=== PATIENT | female | born 1955 | race Caucasian/White ===

== ENCOUNTER 2017-10-22 03:22 | Emergency (ER) | payer OTHER ==
[~2017-10-22] VITALS: Ht 157.5 cm; Wt 60.0 kg
[2017-10-22 03:25] VITALS: PULSE 101; RESP 22; TEMP 98.7; O2SAT 99
[2017-10-22] MEDS ORDERED: ALBU6.7H INH (03:30)
[2017-10-22] MEDS ORDERED: AUGM875T3 PO (03:30)
--- NOTE | 2017-10-22 04:07 | PD ---
HPI Chief Complaint: Respiratory Symptoms Time Seen by Provider: 03:31 Travel History International Travel<30 days: No Contact w/Intl Traveler<30days: No Traveled to known affect area: No History of Present Illness HPI Patient is a 62-year-old female coming in complaining of shortness of breath cough waking up feeling like she is got phlegm that she cannot get out of her chest. She was in urgent care on the seventh which is 2 days ago she was given an HFA inhaler of albuterol and she was given a Augmentin prescription but it is not relieving her symptoms. She says she cannot take prednisone because when she took a Medrol Thomas and after was gone she felt severely depleted depressed and muscle aches for a week she is refusing prednisone here in the ER. PFSH Past Medical History COPD: Yes Past Surgical History Surgical History: No Previous Surgery Social History Alcohol Use: Yes Tobacco Use: Yes Substance Use: No Allergies-Medications (Allergen,Severity, Reaction): Coded Allergies: No Known Allergies (Unverified , 10/22/17) Reported Meds & Prescriptions Reported Meds & Active Scripts Active Reported Augmentin (Amoxicillin-Clavulanate) 875-125 Mg Tab 1 Tab PO BID Proventil Hfa 6.7 GM Inh (Albuterol Sulfate) 90 Mcg/Act Aer 2 Puff INH Q4-6H PRN Review of Systems Except as stated in HPI: all other systems reviewed are Neg General / Constitutional: Positive: Fever Respiratory: Positive: Cough, Shortness of Breath, Wheezing Physical Exam Narrative GENERAL: Nontoxic-appearing she was the satting to 92 on room air SKIN: Warm and dry. HEAD: Atraumatic. Normocephalic. EYES: Pupils equal and round. No scleral icterus. No injection or drainage. ENT: No nasal bleeding or discharge. Mucous membranes pink and moist. NECK: Trachea midline. No JVD. CARDIOVASCULAR: Regular rate and rhythm. RESPIRATORY: No accessory muscle use. wheezing diffusely through all lung aguilar GASTROINTESTINAL: Abdomen soft, non-tender, nondistended. Hepatic and splenic margins not palpable. MUSCULOSKELETAL: Extremities without clubbing, cyanosis, or edema. No obvious deformities. NEUROLOGICAL: Awake and alert. No obvious cranial nerve deficits. Motor grossly within normal limits. Five out of 5 muscle strength in the arms and legs. Normal speech. PSYCHIATRIC: Appropriate mood and affect; insight and judgment normal. Data Data Last Documented VS Vital Signs Date Time Temp Pulse Resp B/P (MAP) Pulse Ox O2 Delivery O2 Flow Rate FiO2 10/22/17 03:25 98.7 101 22 99 Orders Orders Comprehensive Metabolic Panel (10/22/17 03:39) Complete Blood Count With Diff (10/22/17 03:39) Influenzae A/B Antigen (10/22/17 03:39) Albuterol-Ipratropium Neb (Duoneb Neb) (10/22/17 04:15) Guaifen-Cod 200-20 Mg/10ml Liq (Robituss (10/22/17 04:30) Fluticasone 110 Mcg Inh (Flovent Hfa 110 (10/22/17 05:30) Labs Laboratory Tests Test 10/22/17 03:47 White Blood Count 9.4 TH/MM3 Red Blood Count 4.80 MIL/MM3 Hemoglobin 15.0 GM/DL Hematocrit 44.4 % Mean Corpuscular Volume 92.4 FL Mean Corpuscular Hemoglobin 31.3 PG Mean Corpuscular Hemoglobin Concent 33.9 % Red Cell Distribution Width 13.1 % Platelet Count 311 TH/MM3 Mean Platelet Volume 7.5 FL Neutrophils (%) (Auto) 48.6 % Lymphocytes (%) (Auto) 28.2 % Monocytes (%) (Auto) 5.7 % Eosinophils (%) (Auto) 16.4 % Basophils (%) (Auto) 1.1 % Neutrophils # (Auto) 4.6 TH/MM3 Lymphocytes # (Auto) 2.6 TH/MM3 Monocytes # (Auto) 0.5 TH/MM3 Eosinophils # (Auto) 1.5 TH/MM3 Basophils # (Auto) 0.1 TH/MM3 CBC Comment DIFF FINAL Differential Comment Blood Urea Nitrogen 9 MG/DL Creatinine 0.82 MG/DL Random Glucose 123 MG/DL Total Protein 7.1 GM/DL Albumin 3.6 GM/DL Calcium Level 8.6 MG/DL Alkaline Phosphatase 85 U/L Aspartate Amino Transf (AST/SGOT) 20 U/L Alanine Aminotransferase (ALT/SGPT) 19 U/L Total Bilirubin 0.1 MG/DL Sodium Level 143 MEQ/L Potassium Level 4.6 MEQ/L Chloride Level 108 MEQ/L Carbon Dioxide Level 29.6 MEQ/L Anion Gap 5 MEQ/L Estimat Glomerular Filtration Rate 71 ML/MIN MDM Medical Decision Making Medical Screen Exam Complete: Yes Emergency Medical Condition: Yes Differential Diagnosis Differential diagnosis includes reactive airway bronchitis viral influenza Narrative Course Patient feels much better after Flovent HFA and Atrovent as well as cough syrup with codeine discharged home with the same. Patient feels much better after the treatment in the ER and is stable to go room air sat is 96-97% Diagnosis Primary Impression: Bronchitis Patient Instructions: Acute Bronchitis (ED), General Instructions Scripts Guaifenesin-Codeine Liq (Guaifenesin AC Liq) 100-10 Mg/5 Ml Syrp 10 ML PO Q6H Y for COUGH, #1 BOTTLE 0 Refills Prov: Anthony Crum MD 10/22/17 Ipratropium HFA 12.9 GM Inh (Atrovent HFA 12.9 GM Inh) 17 Mcg/Actuation Aer 2 PUFF INH QID, #1 INHALER 0 Refills Prov: Anthony Crum MD 10/22/17 Disposition: 01 DISCHARGE HOME Condition: Good Anthony Crum MD Oct 22, 2017 04:07
[2017-10-22 04:10] LABS: AUTOMATED NEUTROPHIL # 4.6 TH/MM3 (1.8-7.7); BASOPHIL # 0.1 TH/MM3 (0-0.2); BASOPHIL % 1.1 % (0.0-2.0); EOSINOPHIL # 1.5 TH/MM3 (0-0.4); EOSINOPHIL % 16.4 % (0.0-4.0); HEMATOCRIT 44.4 % (35.0-46.0); LYMPH % 28.2 % (9.0-44.0); LYMPHOCYTE # 2.6 TH/MM3 (1.0-4.8); MEAN CELL VOLUME 92.4 FL (80.0-100.0); MEAN CORPUSCULAR HEMOGLOBIN 31.3 PG (27.0-34.0); MEAN CORPUSCULAR HGB CONC 33.9 % (32.0-36.0); MEAN PLATELET VOLUME 7.5 FL (7.0-11.0); MONO % 5.7 % (0.0-8.0); MONOCYTE # 0.5 TH/MM3 (0-0.9); NEUT % 48.6 % (16.0-70.0); PLATELET COUNT 311 TH/MM3 (150-450); RED CELL DISTRIBUTION WIDTH 13.1 % (11.6-17.2); WHITE BLOOD COUNT 9.4 TH/MM3 (4.0-11.0)
[2017-10-22] MEDS ORDERED: RESP: ALBUTEROL 2.5 MG/IPRATROPIUM 0.5 MG NEB (SCH) NEB ONE (04:15)
[2017-10-22 04:24] LABS: ALKALINE PHOSPHATASE 85 U/L (45-117); ALT (GPT) 19 U/L (10-53); TOTAL BILIRUBIN ADULT 0.1 MG/DL (0.2-1.0); TOTAL PROTEIN 7.1 GM/DL (6.4-8.2)
[2017-10-22 04:28] LABS: ALBUMIN 3.6 GM/DL (3.4-5.0); AST (GOT) 20 U/L (15-37); BICARBONATE 29.6 MEQ/L (21.0-32.0); BLOOD UREA NITROGEN 9 MG/DL (7-18); CALCIUM 8.6 MG/DL (8.5-10.1); CHLORIDE 108 MEQ/L (98-107); CREATININE 0.82 MG/DL (0.50-1.00); GLOMERULAR FILTRATION RATE 71 ML/MIN (>89); GLUCOSE,RANDOM 123 MG/DL (74-106); SODIUM (NA) 143 MEQ/L (136-145)
[2017-10-22] MEDS ORDERED: guaiFENesin/CODEINE SYRUP 200 MG/20 MG/10 ML CUP PO ONE (04:30)
[2017-10-22] MEDS ORDERED: FLUTICASONE PROPIONATE 110 MCG/ACT 12 GM INHALER INH ONE (05:30)
[2017-10-22] MEDS ORDERED: IPRA17I INH (05:59)
[2017-10-22] MEDS ORDERED: GUAISYP4 PO (06:02)
== END 2017-10-22 06:16 | disposition home or self-care (01) ==
LOC: NEPE 03:22 → EDBD 03:22 → NEPE 06:16
DX: J40 Bronchitis, not specified as acute or chronic (principal); R05 Cough; J44.9 Chronic obstructive pulmonary disease, unspecified; Z72.0 Tobacco use
CPT/HCPCS: 80053; 85025; 87804; 94664; 99283